=== PATIENT | female | born 1965 | race Caucasian/White ===

== ENCOUNTER 2024-12-23 10:27 | Observation (INO) | payer BC, SELFPAY ==
[2024-12-23] VITALS (15 sets, daily range): BP systolic 113–166; BP diastolic 63–82; PULSE 64–104; RESP 16–32; TEMP 36.3–36.4; O2SAT 93–97; BMI 16.9
--- NOTE | ~2024-12-23 | CT_ITS ---
EXAMINATION: CTA chest PE protocol DATE: 12/24/2024 16:54 CDT INDICATION: Pleuritic chest pain, pulmonary embolus suspected clinically TECHNIQUE: Computed tomographic angiography (CTA) of the chest was performed with 100 mL Omnipaque-35 0 intravenous contrast. The dose-length product was 167.36 mGy-cm. Maximum intensity projection 3D-re constructions of the aorta and other arteries were constructed by the technologist on a separate work station. COMPARISON: None. Two-view chest x-ray dated 12/23/2024 FINDINGS/OBSERVATIONS: PULMONARY ARTERIES: No filling defect is identified within the main or proximal pulmonary artery. The main pulmonary artery is not enlarged. THORACIC AORTA: No aneurysmal dilatation or dissection is present. The great vessels are intact LUNGS: Panlobular emphysematous disease. Calcified granuloma within the left lower lobe suggesting prior granulomatous disease. Redemonstration of bibasilar atelectasis, consistent with recent chest radiograph. MEDIASTINUM: No morphologically suspicious or pathologically enlarged lymph nodes are identified with in the mediastinum or bilateral axilla. BONES OF THE CHEST: No acute fracture. No significant degenerative disease. No lytic or blastic lesions. HEART: The heart is of normal size, without pericardial effusion. IMPRESSION: No pulmonary embolus. No thoracic aortic dissection. Bibasilar atelectasis, consistent with recent chest radiograph Reviewed, dictated and finalized at location A.
--- NOTE | ~2024-12-23 | XR_ITS ---
EXAMINATION: XR chest 2V 12/23/2024 12:23 INDICATION: Shortness of breath PROCEDURE: 2 view chest COMPARISON: No prior studies for comparison. FINDINGS: There is posterior basilar infiltrates which may represent atelectasis or pneumonia. Promin ent left nipple shadow. The cardiomediastinal silhouette is within normal limits. There are no pleur al effusions. There is no pneumothorax suspected. The lungs are hyperinflated which is consistent with, but not diagnostic of chronic obstructive pulmo nary disease. IMPRESSION: 1: Posterior basilar infiltrates, best seen on lateral view, atelectasis versus pneumonia. Reviewed, dictated and finalized at location A. IMPRESSION: 1: Posterior basilar infiltrates, best seen on lateral view, atelectasis versu s pneumonia.
--- OUTSIDE RECORDS SUMMARY | 2024-12-23 11:42 | XMS_ITS | Referral Summary ---
Author Organization [facility] [address] [place] [address] [place] [id number] Care Team Providers Care Afterschool Name Role Phone Marci Trinidad MD Primary Care Provi tootie Encounters Date Type Department Care Team Description 10/20/2024 10:32 AM SCHOOL MANAGER - 10/20/2024 11:57 AM SCHOOL MANAGER Emergency [address] [address] Homelessness (Primary Dx) Discharge Disposition: Discharge to home or self care from Last 3 Months Allergies No known active allergies Medications ibuprofen (ADVIL,MOTRIN) 800 mg tablet Take 1 tablet (800 mg total) by mouth every 8 (eight) hours as needed for pain 30 tablet 10/01/2020 Active Active Problems Problem Noted Date Diagnosed Date Hypertension, essential 09/07/2020 Assessment & Plan (09/07/2020 10:54 AM SCHOOL MANAGER): Will have her follow up as a nurse visit for 2 more blood pressure checks Will check labs If still running high- consider medication Call for questions or concerns Sciatica, right side 09/07/2020 Assessment & Plan (09/07/2020 10:55 AM SCHOOL MANAGER): Will refill ibuprofen Hold muscle relaxers as she has fallen on them Xray ordered Referral to PT Ice/ heat for 10-15 minutes at a time, not on bare skin Call if symptoms change or worsen Tobacco use 09/07/2020 Assessment & Plan (09/07/2020 10:56 AM SCHOOL MANAGER): Continue cutting down Social History Tobacco Use Types Packs/Day Years Used Date Smoking Tobacco: Every Day Cigarettes 0 10 Smokeless Tobacco: Never Tobacco Cessation:Ready to Q uit: No Alcohol Use Standard Drinks/Week Comments Not Currently 0 (1 standard drink = 0.6 oz pur e alcohol) PHQ-2 Answer Date Recorded PHQ-2 Total Score (If total score is 3 or more points, staff should administer the PHQ-9) 0 09/07/2020 Personal Safety Answer Date Recorded Have you ever been in or are you currently in a harmful physical or emotional relationship or is someone making you feel afraid or unsafe? Denies 10/20/2024 Comments No Sex and Gender Information Value Date Recorded Sex Assigned at Not on file Legal Sex Female 3:06 AM SCHOOL MANAGER Gender Identity Not on file Sexual Orientation Not on file Last Filed Vital Signs Vital Sign Reading Time Taken Comments Blood Pressure 143/87 10/20/2024 10:05 AM SCHOOL MANAGER Pulse 106 10/20/2024 10:05 AM SCHOOL MANAGER Temperature 37.2 C (98.9 F) 10/20/2024 10:05 AM SCHOOL MANAGER Respiratory Rate 14 10/20/2024 10:05 AM SCHOOL MANAGER Oxygen Saturation 99% 10/20/2024 10:05 AM SCHOOL MANAGER Inhaled Oxygen Concentration - - Weight 60 kg (132 lb 4.4 oz) 03/04/2022 2:53 PM CDT Height 164.5 cm (5' 4.76 ) 03/04/2022 4:53 PM CD T Body Mass Index 22.17 03/04/2022 2:53 PM CDT Plan of Treatment Not on file Insurance [facility] PLAN YENNY MILLER [id number] Care Teams Afterschool Relationship Specialty Start Date End Date Marci Trinidad MD [facility] [address] [place] [address] PCP - General Family Medicine 06/10/20
--- OUTSIDE RECORDS SUMMARY | 2024-12-23 11:42 | XMS_ITS | Clinical Summary ---
Author Organization [facility] [address] Address [address] [place] [phone] Care Team Providers Care Parole Hearing Officer Name Role Phone Marci Trinidad MD Primary Care Provi tootie Allergies No known active allergies Medications ibuprofen (ADVIL,MOTRIN) 800 mg tablet Take 1 tablet (800 mg total) by mouth every 8 (eight) hours as needed for pain 30 tablet 10/01/2020 Active Active Problems Problem Noted Date Diagnosed Date Hypertension, essential 09/07/2020 Assessment & Plan (09/07/2020 10:54 AM SENIOR WATER/WASTEWATER ENGINEER): Will have her follow up as a nurse visit for 2 more blood pressure checks Will check labs If still running high- consider medication Call for questions or concerns Sciatica, right side 09/07/2020 Assessment & Plan (09/07/2020 10:55 AM SENIOR WATER/WASTEWATER ENGINEER): Will refill ibuprofen Hold muscle relaxers as she has fallen on them Xray ordered Referral to PT Ice/ heat for 10-15 minutes at a time, not on bare skin Call if symptoms change or worsen Tobacco use 09/07/2020 Assessment & Plan (09/07/2020 10:56 AM SENIOR WATER/WASTEWATER ENGINEER): Continue cutting down Encounters Date Type Department Care Team Description 10/20/2024 10:32 AM SENIOR WATER/WASTEWATER ENGINEER - 10/20/2024 11:57 AM SENIOR WATER/WASTEWATER ENGINEER Emergency [address] [address] Homelessness (Primary Dx) Discharge Disposition: Discharge to home or self care from Last 3 Months Surgical History Surgery Date Site/Laterality Comments OVARIAN CYST SURGERY HYSTEROSCOPY W/ ENDOMETRIAL ABLATION REVISION OF SCAR TISSUE RECTUS MUSCLE Medical History Medical History Date Comments Arthritis Hypertension, essential 09/07/2020 Tobacco use 09/07/2020 Family History Medical History Relation Name Comments Arthritis Mother Relation Name Status Comments Mother Alive Social History Tobacco Use Types Packs/Day Years [...] on file Legal Sex Female 3:06 AM SENIOR WATER/WASTEWATER ENGINEER Gender Identity Not on file Sexual Orientation Not on file Obstetrics History Last Filed Vital Signs Vital Sign Reading Time Taken Comments Blood Pressure 143/87 10/20/2024 10:05 AM SENIOR WATER/WASTEWATER ENGINEER Pulse 106 10/20/2024 10:05 AM SENIOR WATER/WASTEWATER ENGINEER Temperature 37.2 C (98.9 F) 10/20/2024 10:05 AM SENIOR WATER/WASTEWATER ENGINEER Respiratory Rate 14 10/20/2024 10:05 AM SENIOR WATER/WASTEWATER ENGINEER Oxygen Saturation 99% 10/20/2024 10:05 AM SENIOR WATER/WASTEWATER ENGINEER Inhaled Oxygen Concentration - - Weight 60 kg (132 lb 4.4 oz) 03/04/2022 2:53 PM CDT Height 164.5 cm (5' 4.76 ) 03/04/2022 4:53 PM CD T Body Mass Index 22.17 03/04/2022 2:53 PM CDT Plan of Treatment Health Maintenance Due Date Last Done Comments Breast Cancer Screening-Mammogram 1965 Cervical Cancer Screening 1965 Colon Cancer Screening-Colonoscopy 1965 Hepatitis C Screening 1965 DTaP/Tdap/Td Vaccine (1 - Tdap) 1976 Hepatitis B Screening 1983 Pneumococcal vaccine <65 (1 of 2 - PCV) 1984 Zoster Vaccine (1 of 2) 2015 Depression Screening 09/07/2021 09/07/2020 Regular Well Visit/Exam 18-64 09/07/2021 09/07/2020 Covid-19 Vaccine ( season) 05/26/202410/2020, 12/04/2020 Influenza Vaccine (#1) 2024 Insurance [facility] PLAN Care Teams Parole Hearing Officer Relationship Specialty Start Date End Date Marci Trinidad MD [address] [place] [address] PCP - General Family Medicine 06/10/20
--- OUTSIDE RECORDS SUMMARY | 2024-12-23 11:42 | XMS_ITS | Clinical Summary ---
Author Organization [facility] Address [facility] [place] [address] Care Team Providers Care Ecologist Technician Name Role Phone None, Provider MD Primary Care Provider Unavaila ble Allergies No known active allergies Medications No known medications Active Problems No known active problems Encounters Date Type Department Care Team Description 10/20/2024 7:42 PM SEPHORA PRODUCT CONSULTANT - 10/20/2024 9:37 PM SEPHORA PRODUCT CONSULTANT Emergency [facility] [place] [address] Abiola Jose PA Medical Screening Discharge Disposition: Home or Self Care (Routine Discharge) 10/20/2024 Travel from Last 3 Months Family History Medical History Relation Comments Heart Disease Father Liver Disease Mother Relation Status Comments Father Alive Mother Alive Social History Tobacco Use Types Packs/Day Years Used Date Smoking Tobacco: Every Day Cigarettes Smokeless Tobacco: Never Alcohol Use Standard Drinks/Week Comments Not Currently 0 (1 standard drink = 0.6 oz pur e alcohol) Comments No Sex and Gender Information Value Date Recorded Sex Assigned at Female 10/20/2024 7:40 PM SEPHORA PRODUCT CONSULTANT Legal Sex Female 7:15 PM CDT Gender Identity Not on file Sexual Orientation Not on file Last Filed Vital Signs Vital Sign Reading Time Taken Comments Blood Pressure 136/93 10/20/2024 7:06 PM SEPHORA PRODUCT CONSULTANT Pulse 99 10/20/2024 7:06 PM SEPHORA PRODUCT CONSULTANT Temperature 36.9 C (98.4 F) 10/20/2024 7:06 PM SEPHORA PRODUCT CONSULTANT Respiratory Rate 16 10/20/2024 7:06 PM SEPHORA PRODUCT CONSULTANT Oxygen Saturation 100% 10/20/2024 7:06 PM SEPHORA PRODUCT CONSULTANT Inhaled Oxygen Concentration - - Weight 42.9 kg (94 lb 9.2 oz) 10/20/2024 7:06 PM SEPHORA PRODUCT CONSULTANT Height 167.6 cm (5' 6 ) 10/20/2024 7:06 PM SEPHORA PRODUCT CONSULTANT Body Mass Index 15.27 10/20/2024 7:06 PM SEPHORA PRODUCT CONSULTANT Plan of Treatment Health Maintenance Due Date Last Done Comments Colorectal Cancer Screening Colonoscopy (10 Years) 1965 Annual Physical 1968 Pneumococcal Vaccine: Pediatrics (0 to 5 Years) and At-Risk Patients (6 to 64 Years) (1 of 2 - PCV) 1971 Hepatitis C 1983 DTaP, Tdap and Td Vaccines ( 1 - Tdap) 1984 Mammogram Screening 2005 Zoster Vaccines (1 of 2) 2015 COVID-19 Vaccine (3 - 2023-2 5 season) 2024 12/25/2020, 12/04/2020 Influenza Adult (#1) 2024 Meningococcal B Vaccine Aged Out No l onger eligible based on patient's age to complete this topic Meningococcal Vaccine Aged Out No chris justyn eligible based on patient's age to complete this topic RSV Immunizations Under 20 Months Aged Out No longer eligible b ased on patient's age to complete this topic Insurance Care Teams Ecologist Technician Relationship Specialty Start Date End Date None, Provider, PCP - General 04/08/22
--- NOTE | 2024-12-23 12:02 | ED_ITS ---
HPI - SOB/Dyspnea General Chief Complaint: Shortness of Breath/Dyspnea <Rosario Saeed APRN - Last Filed: 12/23/24 12:05> Stated Complaint: sob <Rosario Saeed APRN - Last Filed: 12/23/24 12:05> Time Seen by Provider: 12/23/24 12:00 <Rosario Saeed APRN - Last Filed: 12/23/24 12:05> Focused HPI: Patient is a 59-year-old female who presents to the ER with shortness of breath for the past week. She reports she has a history of COPD. Throughout the past week she has had increased congestion, increased shortness of breath, and increased wheezing. Patient reports she lives at a [facility] 3 days per week. She denies any chest pain, recent fevers, abdominal pain or back pain. GENERAL: Ill-appearing, well-nourished, and in mild respiratory distress. HEAD: Normocephalic, atraumatic. CHEST: Coarse to auscultation. ?Mild respiratory distress. HEART: Regular rate and rhythm.? NEURO: ?Alert and oriented x3. Patient screened in triage and initial orders placed.? ?Additional care and disposition to be based upon?diagnostic testing and treatment. <Rosario Saeed APRN - Last Filed: 12/23/24 12:05> History of Present Illness HPI Narrative: Agree with HPI. <Erlin Mendoza MD - Last Filed: 12/24/24 12:57> Related Data Home Medications: Home Medications ?Medication ?Instructions ?Recorded ?Confirmed ?Last Taken ?Type albuterol sulfate 90 mcg/actuation 2 puff inhalation PRN PRN 12/23/24 12/23/24 12/23/24 History aerosol inhaler shortness of breath or wheezing alprazolam 0.25 mg tablet 0.25 mg PO .q12hr 12/23/24 12/23/24 12/23/24 History amlodipine 5 mg tablet 5 mg PO DAILY 12/23/24 12/23/24 12/23/24 History budesonide-formoterol HFA 160 2 puff inhalation BID 12/23/24 12/23/24 12/23/24 History mcg-4.5 mcg/actuation aerosol inhaler (Symbicort) fluticasone 250 mcg-salmeterol 50 1 inh inhalation BID 12/23/24 12/23/24 12/23/24 History mcg/dose blistr powdr for inhalation gabapentin 100 mg capsule 100 mg PO Q12H 12/23/24 12/23/24 12/23/24 History nicotine 14 mg/24 hr daily 1 patch transdermal DAILY 12/23/24 12/23/24 12/23/24 History transdermal patch risperidone 1 mg tablet 1 mg PO HS 12/23/24 12/23/24 12/22/24 History <Rosario Saeed APRN - Last Filed: 12/23/24 12:05> Allergies/Adverse Reactions: Allergies Allergy/AdvReac Type Severity Reaction Status Date / Time NSAIDS (Non-Steroidal Allergy Mild Unknown Verified 12/23/24 12:45 Anti-Inflamma <Rosario Saeed APRN - Last Filed: 12/23/24 12:05> Review of Systems 2 Review of Systems: All systems reviewed & are unremarkable except as noted in HPI and below <Erlin Mendoza MD - Last Filed: 12/24/24 12:57> Constitutional: Constitutional: Reports no additional constitutional complaints <Erlin Mendoza MD - Last Filed: 12/24/24 12:57> Cardiovascular: Cardiovascular: Reports no additional cardiovascular complaints <Erlin Mendoza MD - Last Filed: 12/24/24 12:57> Respiratory: Respiratory: Reports no additional respiratory complaints < Erlin Mendoza MD - Last Filed: 12/24/24 12:57> Gastrointestinal: Gastrointestinal: Reports no additional gastrointestinal complaints <Erlin Mendoza MD - Last Filed: 12/24/24 12:57> Integumentary/Breasts: Skin/Breast: Reports system reviewed and no additional complaints, except as docu <Erlin Mendoza MD - Last Filed: 12/24/24 12:57> [facility] Past Medical History Medical History: Medical History (Updated 12/24/24 @ 12:57 by Erlin Mendoza MD) Hypertension Anxiety Neuropathy Osteoarthritis Tobacco dependence Chronic obstructive pulmonary disease <Rosario Saeed APRN - Last Filed: 12/23/24 12:05> Surgical History Surgical History: Surgical History (Updated 12/23/24 @ 20:15 by Denia Mg PA-C) History of oophorectomy History of laparoscopy for endometriosis <Rosario aSeed APRN - Last Filed: 12/23/24 12:05> Family History Family History: Family History Mother COPD (chronic obstructive pulmonary disease) Neuropathy Cirrhosis Alcoholism Father Cirrhosis Alcoholism <Rosario Saeed APRN - Last Filed: 12/23/24 12:05> Social History Social History: Social History (Updated 12/23/24 @ 20:16 by Denia Mg PA-C) Social History: Surrogate medical decision maker: [employer], ex-. Code status: Full code. Years smoked: 31 Smoking status: Current every day smoker Tobacco type: cigarettes Additional smoking assessment comments: Smoked as much as 1/2 PPD, now down to about a pack a week. Alcohol intake: never Substance use: former Substance use type: heroin Last use: 16 years ago Do You Feel Safe in your Home?: Yes Lack of Transportation: No Lack of Food: Never True Current Housing: I Have Housing Concerned About Future Housing: No Difficulty Paying Gas/Electric Bills: No Difficulty Paying for Meds: No Currently Unemployed: No Education: High School Diploma/GED Difficulty w/ Childcare or Family Care: No Additional living arrangements comments: [facility]. She only stays are 3 days a week and stays with her ex on the other days. Spiritual care concerns: No <Rosario Saeed APRN - Last Filed: 12/23/24 12:05> Exam 2 Narrative: GENERAL: Chronically [id number], well-nourished, and in no acute distress. HEAD: Normocephalic, atraumatic. ENT: Mucous membranes moist. CHEST: Diminished bilaterally awake using. Mild respiratory distress. HEART: Regular rate and rhythm. Normal peripheral pulses. ABDOMEN: Soft, nontender, nondistended. EXTREMITIES: Normal range of motion. No edema. SKIN: Warm, dry, no rash. NEURO: Alert and oriented x3. PSYCH: Normal mood and affect. <Erlin Mendoza MD - Last Filed: 12/24/24 12:57> Course Course Emergency Course: Patient tolerated hour long nebulizer treatment. When ambulating has oxygen desaturation into the upper 80s. Would benefit from observation and scheduled steroid/breathing treatments. <Erlin Mendoza MD - Last Filed: 12/24/24 12:57> Vital Signs Vital signs: Vital Signs Temperature 97.5 F L 12/23/24 10:45 Pulse Rate 94 12/23/24 10:45 Respiratory Rate 16 12/23/24 10:45 Blood Pressure 116/63 12/23/24 10:45 Pulse Oximetry 93 12/23/24 10:45 Temperature 98 F 12/24/24 06:00 Pulse Rate 95 12/24/24 06:00 Respiratory Rate 16 12/24/24 06:00 Blood Pressure 117/60 12/24/24 06:00 Pulse Oximetry 93 12/24/24 06:00 Oxygen Delivery Room Air 12/23/24 20:00 <Rosario Saeed FUNDING COORDINATOR - Last Filed: 12/23/24 12:05> Vital Signs Temperature 97.5 F L 12/23/24 10:45 Pulse Rate 94 12/23/24 10:45 Respiratory Rate 16 12/23/24 10:45 Blood Pressure 116/63 12/23/24 10:45 Pulse Oximetry 93 12/23/24 10:45 Temperature 98 F 12/24/24 06:00 Pulse Rate 95 12/24/24 06:00 Respiratory Rate 16 12/24/24 06:00 Blood Pressure 117/60 12/24/24 06:00 Pulse Oximetry 93 12/24/24 06:00 Oxygen Delivery Room Air 12/23/24 20:00 <Erlin Mendoza MD - Last Filed: 12/24/24 12:57> MDM - SOB/Dyspnea Lab Data Result diagrams: 12/23/24 12:14 12/23/24 12:14 <Rosario Saeed APRN - Last Filed: 12/23/24 12:05> Labs: Lab Results 12/23/24 Range/Units 12:14 WBC 8.0 (4.5-10.0) K/mm3 RBC 4.12 L (4.2-5.4) M/mm3 Hgb 13.8 (12.0-15.0) g/dL Hct 41.4 (37.0-47.0) % MCV 100.5 H (80-100) fl MCH 33.5 (26-34) pg MCHC 33.3 (32-36) g/dl RDW 12.8 (11.5-14.5) % Plt Count 295 (150-375) k/mm3 MPV 8.8 (7.4-10.4) fl Immature Gran % (Auto) 0.4 (0-0.5) % Neut % (Auto) 47.4 (45.5-73.1) % Lymph % (Auto) 45.9 H (18.3-44.2) % [place] % (Auto) 5.0 (2.6-8.5) % Eos % (Auto) 0.9 (0-4.4) % Baso % (Auto) 0.4 (0.2-1.2) % Lymph # (Auto) 3.68 H (0.9-3.2) K/mm3 [place] # (Auto) 0.4 (0.1-0.6) K/mm3 Eos # (Auto) 0.1 (0-0.3) K/mm3 Baso # (Auto) 0.0 (0.0-0.1) K/mm3 Abs Immat Gran (auto) 0.03 (0.00-0.031) K/mm3 Absolute Neuts (auto) 3.8 (1.3-6.7) K/mm3 Absolute Nucleated RBC 0.000 (0.0-0.012) K/mm3 Nucleated RBC % 0.0 (0.0-0.2) % PT 12.7 (11.1-14.7) Seconds INR 0.9 APTT 23.9 (22.3-36.8) Seconds Sodium 143 (137-145) mmol/L Potassium 3.4 (3.4-5.0) mmol/L Chloride 105 (98-107) mmol/L Carbon Dioxide 24 (22-30) mmol/L Anion Gap 14 H (4-12) mmol/L BUN 9 (7-17) mg/dL Creatinine 0.68 L (0.7-1.0) mg/dL Estim Creat Clear Calc 60 ml/min Estimated GFR > 60 (59 - ) Glucose 128 H (65-110) mg/dL Calcium 9.5 (8.4-10.2) mg/dL Total Bilirubin 0.2 (0.2-1.3) mg/dL AST 27 (14-36) U/L ALT 21 (6-35) U/L Alkaline Phosphatase 80 (38-126) U/L Troponin I < 0.012 (0.000-0.034) ng/mL Total Protein 8.0 (6.3-8.2) g/dL Albumin 4.9 (3.5-5.1) g/dL <Rosario Saeed, FUNDING COORDINATOR - Last Filed: 12/23/24 12:05> Lab Results 12/23/24 Range/Units 12:14 WBC 8.0 (4.5-10.0) K/mm3 RBC 4.12 L (4.2-5.4) M/mm3 Hgb 13.8 (12.0-15.0) g/dL Hct 41.4 (37.0-47.0) % MCV 100.5 H (80-100) fl MCH 33.5 (26-34) pg MCHC 33.3 (32-36) g/dl RDW 12.8 (11.5-14.5) % Plt Count 295 (150-375) k/mm3 MPV 8.8 (7.4-10.4) fl Immature Gran % (Auto) 0.4 (0-0.5) % Neut % (Auto) 47.4 (45.5-73.1) % Lymph % (Auto) 45.9 H (18.3-44.2) % [place] % (Auto) 5.0 (2.6-8.5) % Eos % (Auto) 0.9 (0-4.4) % Baso % (Auto) 0.4 (0.2-1.2) % Lymph # (Auto) 3.68 H (0.9-3.2) K/mm3 [place] # (Auto) 0.4 (0.1-0.6) K/mm3 Eos # (Auto) 0.1 (0-0.3) K/mm3 Baso # (Auto) 0.0 (0.0-0.1) K/mm3 Abs Immat Gran (auto) 0.03 (0.00-0.031) K/mm3 Absolute Neuts (auto) 3.8 (1.3-6.7) K/mm3 Absolute Nucleated RBC 0.000 (0.0-0.012) K/mm3 Nucleated RBC % 0.0 (0.0-0.2) % PT 12.7 (11.1-14.7) Seconds INR 0.9 APTT 23.9 (22.3-36.8) Seconds Sodium 143 (137-145) mmol/L Potassium 3.4 (3.4-5.0) mmol/L Chloride 105 (98-107) mmol/L Carbon Dioxide 24 (22-30) mmol/L Anion Gap 14 H (4-12) mmol/L BUN 9 (7-17) mg/dL Creatinine 0.68 L (0.7-1.0) mg/dL Estim Creat Clear Calc 60 ml/min Estimated GFR > 60 (59 - ) Glucose 128 H (65-110) mg/dL Calcium 9.5 (8.4-10.2) mg/dL Total Bilirubin 0.2 (0.2-1.3) mg/dL AST 27 (14-36) U/L ALT 21 (6-35) U/L Alkaline Phosphatase 80 (38-126) U/L Troponin I < 0.012 (0.000-0.034) ng/mL Total Protein 8.0 (6.3-8.2) g/dL Albumin 4.9 (3.5-5.1) g/dL <Erlin Mendoza MD - Last Filed: 12/24/24 12:57> Discharge Plan Discharge Clinical Impression: Acute exacerbation of chronic obstructive pulmonary disease <Rosario Saeed APRN - Last Filed: 12/23/24 12:05> Patient Disposition: Still a Patient <Rosario Saeed APRN - Last Filed: 12/23/24 12:05> Condition: Stable <Rosario Saeed APRN - Last Filed: 12/23/24 12:05>
--- NOTE | 2024-12-23 12:02 | ECG_ITS ---
Test Date: 2024-12-23 12:13:18 Measurements Intervals [place] Rate: 97 P: 78 GA: 152 QRS: 103 QRSD: 97 T: 62 QT: 347 QTc: 442 Interpretive Statements SINUS RHYTHM RIGHT AXIS DEVIATION PROBABLE INFERIOR MYOCARDIAL INFARCTION , PROBABLY OLD [35 ms Q WAVE IN II/aVF] ABNORMAL ECG Electronically Signed On 12-23-2024 14:06:00 CDT by Marco Gtz M.D.
[2024-12-23 12:23] LABS: Basophils Percent Auto 0.4 % (0.2-1.2); Eosinophils Absolute Auto 0.1 K/mm3 (0-0.3); Eosinophils Percent Auto 0.9 % (0-4.4); Hematocrit 41.4 % (37.0-47.0); Hemoglobin 13.8 g/dL (12.0-15.0); Immature Granulocyte Absolute 0.03 K/mm3 (0.00-0.031); Immature Granulocyte Percent A 0.4 % (0-0.5); Lymphocytes Absolute Auto 3.68 K/mm3 (0.9-3.2); Lymphocytes Percent Auto 45.9 % (18.3-44.2); Mean Corpuscular HGB Conc 33.3 g/dl (32-36); Mean Corpuscular Hemoglobin 33.5 pg (26-34); Mean Corpuscular Volume 100.5 fl (80-100); Mean Platelet Volume 8.8 fl (7.4-10.4); Monocytes Absolute Auto 0.4 K/mm3 (0.1-0.6); Neutrophils Absolute Auto 3.8 K/mm3 (1.3-6.7); Neutrophils Percent Auto 47.4 % (45.5-73.1); Platelet Count Result 295 k/mm3 (150-375); Red Blood Count 4.12 M/mm3 (4.2-5.4); Red Cell Distribution Width 12.8 % (11.5-14.5)
[2024-12-23 12:31] LABS: Alanine Aminotransferase 21 U/L (6-35); Albumin Level 4.9 g/dL (3.5-5.1); Alkaline Phosphatase 80 U/L (38-126); Anion Gap 14 mmol/L (4-12); Aspartate Amino Transferase 27 U/L (14-36); Bilirubin,Total 0.2 mg/dL (0.2-1.3); Blood Urea Nitrogen 9 mg/dL (7-17); Calcium 9.5 mg/dL (8.4-10.2); Carbon Dioxide 24 mmol/L (22-30); Chloride 105 mmol/L (98-107); Estimated CRCL calculation 60 ml/min; Estimated Glomerular Filt Rate > 60; Glucose 128 mg/dL (65-110); Potassium 3.4 mmol/L (3.4-5.0); Sodium 143 mmol/L (137-145)
[2024-12-23 12:34] LABS: INR 0.9; Partial Thromboplastin Time 23.9 Seconds (22.3-36.8); Prothrombin Time 12.7 Seconds (11.1-14.7)
[2024-12-23 12:42] LABS: Troponin I < 0.012 ng/mL (0.000-0.034)
[2024-12-23] MEDS: methylPREDNISolone SOD SUCC 125 MG VIAL IV PUSH (13:48)
[2024-12-23] MEDS: IPRATROPIUM BR 0.02% INH SOLN 0.5 MG/2.5 ML VIAL 1.5 MG INHALATION (14:02)
[2024-12-23] MEDS: ALBUTEROL SULFATE NEB 2.5 MG/3 ML INH 15 MG INHALATION (14:02)
--- OUTSIDE RECORDS SUMMARY | 2024-12-23 15:16 | XMS_ITS | Clinical Summary ---
Author Organization [facility] Address [facility] [place] [address] Care Team Providers Care Cotton Breeder Name Role Phone None, Provider MD Primary Care Provider Unavaila ble Allergies No known active allergies Medications No known medications Active Problems No known active problems Encounters Date Type Department Care Team Description 10/20/2024 7:42 PM HOOP PUNCHER - 10/20/2024 9:37 PM HOOP PUNCHER Emergency [facility] [place] [address] Abiola Jose PA Medical Screening Discharge Disposition: [...] Sex Assigned at Female 10/20/2024 7:40 PM HOOP PUNCHER Legal Sex Female 7:15 PM CDT Gender Identity Not on file Sexual Orientation Not on file Last Filed Vital Signs Vital Sign Reading Time Taken Comments Blood Pressure 136/93 10/20/2024 7:06 PM HOOP PUNCHER Pulse 99 10/20/2024 7:06 PM HOOP PUNCHER Temperature 36.9 C (98.4 F) 10/20/2024 7:06 PM HOOP PUNCHER Respiratory Rate 16 10/20/2024 7:06 PM HOOP PUNCHER Oxygen Saturation 100% 10/20/2024 7:06 PM HOOP PUNCHER Inhaled Oxygen Concentration - - Weight 42.9 kg (94 lb 9.2 oz) 10/20/2024 7:06 PM HOOP PUNCHER Height 167.6 cm (5' 6 ) 10/20/2024 7:06 PM HOOP PUNCHER Body Mass Index 15.27 10/20/2024 7:06 PM HOOP PUNCHER Plan of Treatment Health Maintenance Due Date [...] to complete this topic Insurance Care Teams Cotton Breeder Relationship Specialty Start Date End Date None, Provider, PCP - General 04/08/22
--- OUTSIDE RECORDS SUMMARY | 2024-12-23 15:16 | XMS_ITS | Referral Summary ---
Author Organization [facility] [address] [place] [address] [place] [id number] Care Team Providers Care Neuropsychiatrist Name Role Phone Marci Trinidad MD Primary Care Provi tootie Encounters Date Type Department Care Team Description 10/20/2024 10:32 AM PROGRESSIVE DIE MAKER - 10/20/2024 11:57 AM PROGRESSIVE DIE MAKER Emergency [address] [address] Homelessness (Primary Dx) Discharge Disposition: Discharge to home or self care from Last 3 Months Allergies No known active allergies Medications ibuprofen (ADVIL,MOTRIN) 800 mg tablet Take 1 tablet (800 mg total) by mouth every 8 (eight) hours as needed for pain 30 tablet 10/01/2020 Active Active Problems Problem Noted Date Diagnosed Date Hypertension, essential 09/07/2020 Assessment & Plan (09/07/2020 10:54 AM PROGRESSIVE DIE MAKER): Will have her follow up as a nurse visit for 2 more blood pressure checks Will check labs If still running high- consider medication Call for questions or concerns Sciatica, right side 09/07/2020 Assessment & Plan (09/07/2020 10:55 AM PROGRESSIVE DIE MAKER): Will refill ibuprofen Hold muscle relaxers as she has fallen on them Xray ordered Referral to PT Ice/ heat for 10-15 minutes at a time, not on bare skin Call if symptoms change or worsen Tobacco use 09/07/2020 Assessment & Plan (09/07/2020 10:56 AM PROGRESSIVE DIE MAKER): Continue cutting down Social History Tobacco Use [...] on file Legal Sex Female 3:06 AM PROGRESSIVE DIE MAKER Gender Identity Not on file Sexual Orientation Not on file Last Filed Vital Signs Vital Sign Reading Time Taken Comments Blood Pressure 143/87 10/20/2024 10:05 AM PROGRESSIVE DIE MAKER Pulse 106 10/20/2024 10:05 AM PROGRESSIVE DIE MAKER Temperature 37.2 C (98.9 F) 10/20/2024 10:05 AM PROGRESSIVE DIE MAKER Respiratory Rate 14 10/20/2024 10:05 AM PROGRESSIVE DIE MAKER Oxygen Saturation 99% 10/20/2024 10:05 AM PROGRESSIVE DIE MAKER Inhaled Oxygen Concentration - - Weight 60 kg (132 lb 4.4 oz) 03/04/2022 2:53 PM CDT Height 164.5 cm (5' 4.76 ) 03/04/2022 4:53 PM CD T Body Mass Index 22.17 03/04/2022 2:53 PM CDT Plan of Treatment Not on file Insurance [facility] PLAN YENNY MILLER [id number] Care Teams Neuropsychiatrist Relationship Specialty Start Date End Date Marci Trinidad MD [facility] [address] [place] [address] PCP - General Family Medicine 06/10/20
--- OUTSIDE RECORDS SUMMARY | 2024-12-23 15:16 | XMS_ITS | Clinical Summary ---
Author Organization [facility] Address [address] [place] [id number] Care Team Providers Care Boxcar Weigher Name Role Phone Marci Trinidad MD Primary Care Provi tootie Allergies No known active allergies Medications ibuprofen (ADVIL,MOTRIN) 800 mg tablet Take 1 tablet (800 mg total) by mouth every 8 (eight) hours as needed for pain 30 tablet 10/01/2020 Active Active Problems Problem Noted Date Diagnosed Date Hypertension, essential 09/07/2020 Assessment & Plan (09/07/2020 10:54 AM BATTERY REPAIRER): Will have her follow up as a nurse visit for 2 more blood pressure checks Will check labs If still running high- consider medication Call for questions or concerns Sciatica, right side 09/07/2020 Assessment & Plan (09/07/2020 10:55 AM BATTERY REPAIRER): Will refill ibuprofen Hold muscle relaxers as she has fallen on them Xray ordered Referral to PT Ice/ heat for 10-15 minutes at a time, not on bare skin Call if symptoms change or worsen Tobacco use 09/07/2020 Assessment & Plan (09/07/2020 10:56 AM BATTERY REPAIRER): Continue cutting down Encounters Date Type Department Care Team Description 10/20/2024 10:32 AM BATTERY REPAIRER - 10/20/2024 11:57 AM BATTERY REPAIRER Emergency [address] [id number] Homelessness (Primary Dx) Discharge Disposition: Discharge to [...] on file Legal Sex Female 3:06 AM BATTERY REPAIRER Gender Identity Not on file Sexual Orientation Not on file Obstetrics History Last Filed Vital Signs Vital Sign Reading Time Taken Comments Blood Pressure 143/87 10/20/2024 10:05 AM BATTERY REPAIRER Pulse 106 10/20/2024 10:05 AM BATTERY REPAIRER Temperature 37.2 C (98.9 F) 10/20/2024 10:05 AM BATTERY REPAIRER Respiratory Rate 14 10/20/2024 10:05 AM BATTERY REPAIRER Oxygen Saturation 99% 10/20/2024 10:05 AM BATTERY REPAIRER Inhaled Oxygen Concentration - - Weight 60 [...] 05/26/202410/2020, 12/04/2020 Influenza Vaccine (#1) 2024 Insurance [facility] Care Teams Boxcar Weigher Relationship Specialty Start Date End Date Marci Trinidad MD [address] [place] [address] PCP - General Family Medicine 06/10/20
--- NOTE | 2024-12-23 17:30 | P.HP_ITS ---
H&P: HPI History of Present Illness Date/Time: 12/23/24 17:30 Chief Complaint: Cough and shortness of breath. Narrative: This is a pleasant 59-year-old female smoker with chronic obstructive pulmonary disease, hypertension, neuropathy, and anxiety who presented to the emergency department via EMS from home for evaluation of cough and shortness of breath. At baseline she does not get around very well and is limited by her breathing. When she is out of the home (she lives at [place] 3 days a week but then stays with her ex- the remainder of the week) she will use as scooter. She can only go up a few steps without getting short of breath. She does have a chronic cough which is typically not productive. Over the course of the last week or so she has developed increasing cough which has been productive clear sputum, progressive dyspnea on lesser and lesser exertion, and feelings as though she is unable to get in a good deep breath. She has been using her inhalers at home which have not provided her with much benefit. She does not have nebulizers prescribed to her. She denies fever, headache, sore throat, hemoptysis, pleuritic pain, vomiting, diarrhea, lower extremity edema, and calf pain. In the ED: SpO2 was 93% on room air on arrival and her vital signs have been stable. CMP and CBC were pretty unremarkable. Chest x-ray showed posterior basal infiltrates atelectasis versus pneumonia. She was given a continuous nebulizer treatment and methylprednisolone and she is being admitted in this setting for further treatment of COPD exacerbation. Review of Systems Review of Systems: 12 systems were reviewed and are negativ e except for as per HPI. [facility] Past Medical History Medical History (Updated 12/23/24 @ 20:19 by Denia Mg PA-C) Hypertension Anxiety Neuropathy Osteoarthritis Tobacco dependence Chronic obstructive pulmonary disease Surgical History Surgical History (Updated 12/23/24 @ 20:15 by Denia Mg PA-C) History of oophorectomy History of laparoscopy for endometriosis Family History Family History Mother COPD (chronic obstructive pulmonary disease) Neuropathy Cirrhosis Alcoholism Father Cirrhosis Alcoholism Social History Social History (Updated 12/23/24 @ 20:16 by Denia Mg PA-C) Social History: Surrogate medical decision maker: Avery Madura, ex-. Code status: Full code. Years smoked: 31 Smoking status: Current every day smoker Tobacco type: cigarettes Additional smoking assessment comments: Smoked as much as 1/2 PPD, now down to about a pack a week. Alcohol intake: never Substance use: former Substance use type: heroin Last use: 16 years ago Do You Feel Safe in your Home?: Yes Lack of Transportation: No Lack of Food: Never True Current Housing: I Have Housing Concerned About Future Housing: No Difficulty Paying Gas/Electric Bills: No Difficulty Paying for Meds: No Currently Unemployed: No Education: High School Diploma/GED Difficulty w/ Childcare or Family Care: No Additional living arrangements comments: [facility]. She only stays are 3 days a week and stays with her ex on the other days. Spiritual care concerns: No Meds Home Medications and Allergies Home Medications ?Medication ?Instructions ?Recorded ?Confirmed ?Type albuterol sulfate 90 mcg/actuation 2 puff inhalation PRN PRN 12/23/24 12/23/24 History aerosol inhaler shortness of breath or wheezing alprazolam 0.25 mg tablet 0.25 mg PO BID 12/23/24 12/23/24 History amlodipine 5 mg tablet 5 mg PO DAILY 12/23/24 12/23/24 History budesonide-formoterol HFA 160 2 puff inhalation BID 12/23/24 12/23/24 History mcg-4.5 mcg/actuation aerosol inhaler (Symbicort) fluticasone 250 mcg-salmeterol 50 1 inh inhalation BID 12/23/24 12/23/24 History mcg/dose blistr powdr for inhalation gabapentin 100 mg capsule 100 mg PO BID 12/23/24 12/23/24 History nicotine 14 mg/24 hr daily 1 patch transdermal DAILY 12/23/24 12/23/24 History transdermal patch risperidone 1 mg tablet 1 mg PO HS 12/23/24 12/23/24 History Allergies Allergy/AdvReac Type Severity Reaction Status Date / Time NSAIDS (Non-Steroidal Allergy Mild Unknown Verified 12/23/24 12:45 Anti-Inflamma Vital Signs Vital Signs - 24 hr 12/23/24 10:45 12/23/24 12:43 12/23/24 12:43 Temperature 97.5 F L Pulse Rate 94 92 Respiratory Rate 16 Blood Pressure 116/63 Pulse Oximetry 93 97 Oxygen Delivery Room Air 12/23/24 13:16 12/23/24 13:32 12/23/24 14:00 Temperature Pulse Rate 94 97 90 Respiratory Rate 26 H 32 H 20 Blood Pressure 116/73 166/81 H Pulse Oximetry 97 95 Oxygen Delivery 12/23/24 15:25 12/23/24 16:51 Temperature Pulse Rate 104 H 97 Respiratory Rate 20 20 Blood Pressure 113/70 Pulse Oximetry 93 Oxygen Delivery Exam Narrative: General: Well-developed, thin female sitting up in bed in no acute distress. Weight: 50 kg. BMI: 19.5. HEENT: PERRL, EOMI. Sclera anicteric. Oral mucosa moist. Neck: Supple. Respiratory: Respirations are nonlabored and she appears in no distress. She is speaking in full sentences. Diminished air entry throughout with diffuse expiratory wheezing and prolonged expiratory phase. Cardiovascular: Regular rate and rhythm with S1-S2. Gastrointestinal: Abdomen is soft, nontender, and nondistended with positive bowel sounds. Skin: Warm and dry. No rash or lesions on limited exam. Extremities: No cyanosis, clubbing, or edema. Radial and pedal pulses intact. Neurological: Alert. Cranial nerves 2-12 are grossly intact. No gross focal deficits to casual conversation. Psychiatric: Pleasant and cooperative with normal mood and affect. Judgment and insight intact. H&P: Results Labs Labs: Short CBC 12/23/24 Range/Units 12:14 WBC 8.0 (4.5-10.0) K/mm3 Hgb 13.8 (12.0-15.0) g/dL Hct 41.4 (37.0-47.0) % Plt Count 295 (150-375) k/mm3 [facility] 12/23/24 12:14 Sodium 143 Potassium 3.4 Chloride 105 Carbon Dioxide 24 BUN 9 Creatinine 0.68 L Glucose 128 H Calcium 9.5 Cardiac Enzymes 12/23/24 Range/Units 12:14 Troponin I < 0.012 (0.000-0.034) ng/mL Liver Function 12/23/24 Range/Units 12:14 Total Bilirubin 0.2 (0.2-1.3) mg/dL AST 27 (14-36) U/L ALT 21 (6-35) U/L Alkaline Phosphatase 80 (38-126) U/L Albumin 4.9 (3.5-5.1) g/dL Impressions Chest X-Ray 12/23/24 12:30 IMPRESSION: 1: Posterior basilar infiltrates, best seen on lateral view, atelectasis versus pneumonia. Assessment and Plan Assessment and plan (1) Acute exacerbation of chronic obstructive pulmonary disease: Code(s): J44.1 - Chronic obstructive pulmonary disease with (acute) exacerbation Status: Acute (2) Tobacco dependence: Code(s): F17.200 - Nicotine dependence, unspecified, uncomplicated Status: Acute (3) Neuropathy: Code(s): G62.9 - Polyneuropathy, unspecified Status: Acute (4) Anxiety: Code(s): F41.9 - Anxiety disorder, unspecified Status: Acute (5) Hypertension: Code(s): I10 - Essential (primary) hypertension Status: Acute Plan The patient presented to the emergency department for evaluation of increasing shortness of breath and cough over the past 1 week as detailed in HPI. Labs, imaging, EKG, and all reports were personally reviewed. Clinically she has a COPD exacerbation and she has been started on scheduled bronchodilators and methylprednisolone. Given increasing shortness of breath and productive cough which is unusual for, she has been started on antibiotics as well. Smoking cessation is imperative and was discussed. Nicotine patch available per the patient's request. Blood pressures were reviewed and they are stable. Her home medications will be reviewed and resumed as appropriate. Findings and treatment plan were discussed with the patient. Questions were solicited and answered to satisfaction. The patient's medical management will be taken over by the hosp italist team in a.m. Quality VTE Prophylaxis VTE prophylaxis: pharmacologic ordered 12 systems were reviewed and are negative except for as per HPI. Hospitalist MIPS Advance Care Plan I have confirmed that the patient's Advanced Care Plan is present, code status is documented, or surrogate decision maker is listed in patient medical record.: Yes Medication Reconciliation The patient is not eligible for med reconciliation; the patient is in a emergent medical situation where delaying treatment would jeopardize the patients health.: Yes
[2024-12-23] MEDS: methylPREDNISolone SOD SUCC 125 MG VIAL 60 MG IV PUSH ×2 (18:12→23:51)
--- NOTE | 2024-12-23 19:43 | ADMGEN ---
This patient, Trini Chappell, was admitted to Medical Room 342-01. Patient/family oriented to hospital policies and general routines including ID bracelet, bed and alarms, visiting hours, pain management, procedures, bathroom and other care routines, personal items, smoking policy, room service/diet, and visiting hours. Information on how to activate the Rapid Response Team has been discussed. Patient/Family are encouraged to report perceived risks to care and to ask questions if they do not understand what they are told or what they should do.
[2024-12-23] MEDS: IPRATROPIUM 0.5 MG/ALBUTEROL SULFATE 2.5 MG AMPUL.NEB 3 ML INHALATION (19:53)
[2024-12-23] MEDS: HYDROcodone/acetaminophen (*CRX) 5-325 MG TABLET 1 TAB PO (20:45)
[2024-12-23] MEDS: GABAPENTIN 100 MG CAPSULE PO (20:45)
[2024-12-23] MEDS: risperiDONE 1 MG TABLET PO (20:45)
[2024-12-23] MEDS: ALPRAZolam (*CRX) 0.25 MG TABLET PO (20:45)
[2024-12-23] MEDS: guaiFENesin 12 HR 600 MG TABCR PO (20:45)
[2024-12-23] MEDS: NICOTINE (*PBKC) 14 MG PATCH 1 PATCH TRANSDERM (20:46)
[2024-12-23] MEDS: AZITHROMYCIN 250 MG TABLET 500 MG PO (20:47)
[2024-12-23 21:46] LABS: Influenza A QL RT-PCR Negative (Negative); Influenza B QL RT-PCR Negative (Negative); RSV RNA, RT-PCR Negative (Negative); SARS-CoV-2 RNA PCR Negative (Negative)
[2024-12-23 22:21] LABS: MRSA (PCR) NOT DETECTED (NOT DETECTE)
[2024-12-24] VITALS (7 sets, daily range): BP systolic 104–156; BP diastolic 50–76; PULSE 91–102; RESP 16–20; TEMP 36.4–36.8; O2SAT 91–93; BMI 17.2
[2024-12-24] MEDS: HYDROcodone/acetaminophen (*CRX) 5-325 MG TABLET 1 TAB PO ×3 (02:35→17:34)
[2024-12-24] MEDS: IPRATROPIUM 0.5 MG/ALBUTEROL SULFATE 2.5 MG AMPUL.NEB 3 ML INHALATION ×2 (03:00→20:51)
[2024-12-24] MEDS: methylPREDNISolone SOD SUCC 125 MG VIAL 60 MG IV PUSH ×3 (05:52→17:35)
[2024-12-24] MEDS: NICOTINE (*PBKC) 14 MG PATCH 1 PATCH TRANSDERM (08:40)
[2024-12-24] MEDS: ENOXAPARIN 40 MG/0.4 ML SYRINGE SUB-Q (08:41)
[2024-12-24] MEDS: guaiFENesin 12 HR 600 MG TABCR PO ×2 (08:41→21:11)
[2024-12-24] MEDS: amLODIPine BESYLATE 5 MG TABLET PO (08:41)
[2024-12-24] MEDS: ALPRAZolam (*CRX) 0.25 MG TABLET PO ×2 (08:41→21:11)
[2024-12-24] MEDS: GABAPENTIN 100 MG CAPSULE PO ×2 (08:41→21:11)
[2024-12-24] MEDS: levoFLOXacin 500 MG TABLET PO (08:42)
--- NOTE | 2024-12-24 10:35 | PCRCNOTE ---
Window of time for administration has passed. See next scheduled administration.
[2024-12-24] MEDS: ACETAMINOPHEN 325 MG TABLET 650 MG PO (12:12)
--- NOTE | 2024-12-24 13:07 | PC.NURSE ---
Pt requesting to be made a DNR. Pt education provided and understands what changing to DNR means. Secondary nurse to co-sign change.
--- NOTE | 2024-12-24 15:25 | P.PNIM_ITS ---
Progress Note: A&P Assessment and Plan (1) Acute exacerbation of chronic obstructive pulmonary disease: Code(s): J44.1 - Chronic obstructive pulmonary disease with (acute) exacerbation Status: Acute Assessment and Plan: Patient presents with SOB and cough. CXR showing posterior basilar infiltrates. She remains on room air. [place] she has COPD exacerbation with either acute bronchitis or PNA. Can not exclude PE given her pleuritic pain. Continue Solu-medrol and bronchodilators. Check sputum. Change to Levaquin. Check CTA chest. Change to oral Prednisone tomorrow for possible discharge. CTA negative for PNA and PE. (2) Tobacco dependence: Code(s): F17.200 - Nicotine dependence, unspecified, uncomplicated Status: Acute Assessment and Plan: Patient was educated about the benefits of smoking cessation. (3) Neuropathy: Code(s): G62.9 - Polyneuropathy, unspecified Status: Acute Assessment and Plan: Stable. Continue gabapentin. (4) Anxiety: Code(s): F41.9 - Anxiety disorder, unspecified Status: Acute Assessment and Plan: Mood is stable. Continue her risperidone and alprazolam. (5) Hypertension: Code(s): I10 - Essential (primary) hypertension Status: Acute Assessment and Plan: Patient's blood pressure was reviewed Blood pressure remains well controlled. Will continue to monitor Plan DVT prophyalxis - Lovenox Code status - DNR Subjective Date/time seen: 12/24/24 15:25 Interval history: 59yo female with COPD, ongoing tobacco use, HTN, neuropathy and anxiety here for cough and SOB. SOB unchanged. No CP. [place] feverish at home. Cough productive of yellow sputum. No leg edema. Does complain of calf pain bilaterally but feel related to her neuropathy. Patient with left upper back pleuritic pain that is not positional Exam Narrative: AF 98.0 117/60 95 16 93% ra Gen - thin female in NARD Chest - expiratory rhonchi with end expir wheeze diffusely CV - RRR S1/S2 Abd - soft, NT, ND Ext - no pedal edema. No cords. +Homans Neuro - nonfocal Psych - pleasant and cooperative Skin - warm and dry Objective Data Vital Signs Vital Signs: Vital Signs - 24 hr 12/23/24 16:51 12/23/24 17:16 12/23/24 17:31 Temperature Pulse Rate 97 98 96 Respiratory Rate 20 27 H 30 H Blood Pressure 113/70 134/82 129/69 Pulse Oximetry 93 95 94 Oxygen Delivery 12/23/24 17:45 12/23/24 18:15 12/23/24 19:53 Temperature Pulse Rate 100 95 Respiratory Rate 20 20 Blood Pressure 130/74 Pulse Oximetry 94 94 Oxygen Delivery Room Air 12/23/24 19:55 12/23/24 19:59 12/23/24 20:00 Temperature Pulse Rate 91 Respiratory Rate 20 Blood Pressure Pulse Oximetry 96 Oxygen Delivery Room Air Room Air 12/23/24 22:06 12/24/24 03:00 12/24/24 03:09 Temperature 97.3 F L Pulse Rate 64 91 99 Respiratory Rate 16 20 20 Blood Pressure 157/74 H Pulse Oximetry 94 Oxygen Delivery 12/24/24 06:00 Temperature 98 F Pulse Rate 95 Respiratory Rate 16 Blood Pressure 117/60 Pulse Oximetry 93 Oxygen Delivery Intake/Output Intake/Output: Intake & Output 12/21/24 12/22/24 12/23/24 12/24/24 23:59 23:59 23:59 23:59 Intake Total 1027 Output Total 300 Balance 727 Meds/Results Medications: Active Medications Generic Name Dose Route Start Last Admin Trade Name Freq PRN Reason Stop Dose Admin Acetaminophen 650 mg 12/23/24 16:55 12/24/24 12:12 Acetaminophen 325 Mg Tablet PO 650 mg Q4H PRN Administration Mild Pain (1-3) or Fever Hydrocodone Bitart/Acetaminophen 1 tab 12/23/24 20:20 12/24/24 08:43 Hydrocodone/Acetaminophen (*Crx) 5-325 Mg Tablet PO 1 tab Q6H PRN Administration Pain Rated 4-6 Albuterol/Ipratropium 3 ml 12/23/24 20:00 12/24/24 10:34 Ipratropium 0.5 Mg/Albuterol Sulfate 2.5 Mg Ampul.Neb 3 Ml INHALATION Not Given Q6HRT SHIVANI Alprazolam 0.25 mg 12/23/24 21:00 12/24/24 08:41 Alprazolam (*Crx) 0.25 Mg Tablet PO 0.25 mg Q12HR SHIVANI Administration Amlodipine Besylate 5 mg 12/24/24 09:00 12/24/24 08:41 Amlodipine Besylate 5 Mg Tablet PO 5 mg DAILY SHIVANI Administration Enoxaparin Sodium 40 mg 12/24/24 09:00 12/24/24 08:41 Enoxaparin 40 Mg/0.4 Ml Syringe SUB-Q 40 mg DAILY SHIVANI Administration Gabapentin 100 mg 12/23/24 21:00 12/24/24 08:41 Gabapentin 100 Mg Capsule PO 100 mg Q12HR SHIVANI Administration Guaifenesin 600 mg 12/23/24 21:00 12/24/24 08:41 Guaifenesin 12 Hr 600 Mg Tabcr PO 600 mg Q12HR SHIVANI Administration Levofloxacin 500 mg 12/24/24 09:00 12/24/24 08:42 Levofloxacin 500 Mg Tablet PO 12/28/24 09:01 500 mg DAILY SHIVANI Administration Methylprednisolone Sodium Succinate 60 mg 12/23/24 18:00 12/24/24 11:59 Methylprednisolone Sod Succ 125 Mg Vial IV PUSH 60 mg Q6HR SHIVANI Administration Nicotine 1 patch 12/23/24 20:25 12/24/24 08:40 Nicotine (*Yuliya) 14 Mg Patch TRANSDERM 1 patch DAILY SHIVANI Administration Risperidone 1 mg 12/23/24 21:00 12/23/24 20:45 Risperidone 1 Mg Tablet PO 1 mg HS SHIVANI Administration Fluticasone/Salmeterol 2 puff 12/24/24 08:00 12/24/24 10:34 Fluticasone/Salmeterol 115-21 Mcg Inhaler 1 Puff INHALATION Not Given Q12HRT [facility] Radiology Results: ITS Impressions Chest X-Ray 12/23/24 12:30 IMPRESSION: 1: Posterior basilar infiltrates, best seen on lateral view, atelectasis versus pneumonia. Labs Labs: Laboratory Results - last 24 hr 12/23/24 21:00 Nasal MRSA (PCR) Not detected Influenza A (RT-PCR) Negative Influenza B (RT-PCR) Negative RSV (RT-PCR) Negative SARS-CoV-2 RNA (RT-PCR) Negative
--- NOTE | 2024-12-24 18:47 | PCRCNOTE ---
Window of time for administration has passed. See next scheduled administration.
[2024-12-24] MEDS: FLUTICASONE/SALMETEROL 115-21 MCG INHALER 1 PUFF 2 PUFF INHALATION (20:53)
[2024-12-24] MEDS: risperiDONE 1 MG TABLET PO (21:11)
[2024-12-25] VITALS (8 sets, daily range): BP systolic 125; BP diastolic 64; PULSE 85–100; RESP 16–20; TEMP 36.4; O2SAT 94–95
[2024-12-25] MEDS: methylPREDNISolone SOD SUCC 125 MG VIAL 60 MG IV PUSH
[2024-12-25] MEDS: IPRATROPIUM 0.5 MG/ALBUTEROL SULFATE 2.5 MG AMPUL.NEB 3 ML INHALATION ×3 (01:43→13:36)
[2024-12-25] MEDS: HYDROcodone/acetaminophen (*CRX) 5-325 MG TABLET 1 TAB PO ×3 (06:25→12:22)
[2024-12-25] MEDS: amLODIPine BESYLATE 5 MG TABLET PO (09:13)
[2024-12-25] MEDS: ALPRAZolam (*CRX) 0.25 MG TABLET PO (09:13)
[2024-12-25] MEDS: NICOTINE (*PBKC) 14 MG PATCH 1 PATCH TRANSDERM (09:13)
[2024-12-25] MEDS: predniSONE 20 MG TABLET 40 MG PO (09:13)
[2024-12-25] MEDS: levoFLOXacin 500 MG TABLET PO (09:13)
[2024-12-25] MEDS: guaiFENesin 12 HR 600 MG TABCR PO (09:13)
[2024-12-25] MEDS: GABAPENTIN 100 MG CAPSULE PO (09:13)
--- NOTE | 2024-12-25 09:55 | P.PNIM_ITS ---
Progress Note: A&P Assessment and Plan (1) Anxiety: Code(s): F41.9 - Anxiety disorder, unspecified Status: Acute (2) Hypertension: Code(s): I10 - Essential (primary) hypertension Status: Acute (3) Neuropathy: Code(s): G62.9 - Polyneuropathy, unspecified Status: Acute (4) Acute exacerbation of chronic obstructive pulmonary disease: Code(s): J44.1 - Chronic obstructive pulmonary disease with (acute) exacerbation Status: Acute (5) Tobacco dependence: Code(s): F17.200 - Nicotine dependence, unspecified, uncomplicated Status: Acute Plan (1) Acute exacerbation of chronic obstructive pulmonary disease: Code(s): J44.1 - Chronic obstructive pulmonary disease with (acute) exacerbation Status: Acute Assessment and Plan: Patient presents with SOB and cough. CXR showing posterior basilar infiltrates. COPD exacerbation with either acute bronchitis or PNA. on Solu-medrol and bronchodilators. Check sputum. Change to Levaquin. Check CTA chest CT shows no PE or pneumonia, bilateral atelectasis Exacerbation resolved, changed to tapering dose prednisone p.o. Tobacco dependence: Code(s): F17.200 - Nicotine dependence, unspecified, uncomplicated Status: Acute Assessment and Plan: Patient was educated about the benefits of smoking cessation. Neuropathy: Code(s): G62.9 - Polyneuropathy, unspecified Status: Acute Assessment and Plan: Stable. Continue gabapentin. Anxiety: Code(s): F41.9 - Anxiety disorder, unspecified Status: Acute Assessment and Plan: Mood is stable. Continue her risperidone and alprazolam. (5) Hypertension: Code(s): I10 - Essential (primary) hypertension Status: Acute Assessment and Plan: Patient's blood pressure was reviewed Blood pressure remains well controlled. Discharge patient home today Subjective Date/time seen: 12/25/24 09:55 Interval history: Patient feels comfortable, pulse ox 100% on room air. Patient has a mild cough without phlegm. Denies chest pain abdomen pain nausea vomiting diarrhea dysuria. Patient is afebrile blood pressure stable Exam Narrative: GENERAL: Pleasant, in no acute distress. Well-nourished. - EYES: EOMI. Anicteric. - HENT: Moist mucous membranes. - LUNGS: Clear to auscultation bilateral ly, no wheezing, rhonchi, or rales. - CARDIOVASCULAR: Regular rate and rhyth m. No murmur. No JVD. - ABDOMEN: Soft, non-tender and non-dist ended. No palpable masses. - EXTREMITIES: No edema. Peripheral puls es 2+. Non-tender. - NEUROLOGIC: No focal neurological defi cits. CN II-XII grossly intact. - PSYCHIATRIC: Awake, Alert and oriented x 3. Appropriate mood and affect. - SKIN: No rashes or lesions. Warm. - LYMPH: No cervical lymphadenopathy. Objective Data Vital Signs Vital Signs: Vital Signs - 24 hr 12/24/24 14:00 12/24/24 20:00 12/24/24 20:51 Temperature 97.6 F Pulse Rate 102 H Respiratory Rate 19 Blood Pressure 104/50 L Pulse Oximetry 92 91 Oxygen Delivery Room Air Room Air Fraction of Inspired Oxygen 21 12/24/24 20:51 12/24/24 21:02 12/24/24 22:01 Temperature 98.3 F Pulse Rate 92 96 101 H Respiratory Rate 20 20 16 Blood Pressure 156/76 H Pulse Oximetry 93 Oxygen Delivery Fraction of Inspired Oxygen 12/25/24 01:43 12/25/24 01:54 12/25/24 06:00 Temperature 97.5 F L Pulse Rate 100 94 99 Respiratory Rate 20 20 16 Blood Pressure 125/64 Pulse Oximetry 95 Oxygen Delivery Fraction of Inspired Oxygen 12/25/24 08:00 Temperature Pulse Rate Respiratory Rate Blood Pressure Pulse Oximetry Oxygen Delivery Room Air Fraction of Inspired Oxygen Intake/Output Intake/Output: Intake & Output 12/22/24 12/23/24 12/24/24 12/25/24 23:59 23:59 23:59 23:59 Intake Total 1814 1040 Output Total 900 1500 Balance 914 -460 Meds/Results Medications: Active Medications Generic Name Dose Route Start Last Admin Trade Name Freq PRN Reason Stop Dose Admin Acetaminophen 650 mg 12/23/24 16:55 12/24/24 12:12 Acetaminophen 325 Mg Tablet PO 650 mg Q4H PRN Administration Mild Pain (1-3) or Fever Hydrocodone Bitart/Acetaminophen 1 tab 12/23/24 20:20 12/25/24 06:25 Hydrocodone/Acetaminophen (*Crx) 5-325 Mg Tablet PO 1 tab Q6H PRN Administration Pain Rated 4-6 Albuterol/Ipratropium 3 ml 12/23/24 20:00 12/25/24 01:43 Ipratropium 0.5 Mg/Albuterol Sulfate 2.5 Mg Ampul.Neb 3 Ml INHALATION 3 ml Q6HRT SHIVANI Administration Alprazolam 0.25 mg 12/23/24 21:00 12/25/24 09:13 Alprazolam (*Crx) 0.25 Mg Tablet PO 0.25 mg Q12HR SHIVANI Administration Amlodipine Besylate 5 mg 12/24/24 09:00 12/25/24 09:13 Amlodipine Besylate 5 Mg Tablet PO 5 mg DAILY SHIVANI Administration Enoxaparin Sodium 40 mg 12/24/24 09:00 12/24/24 08:41 Enoxaparin 40 Mg/0.4 Ml Syringe SUB-Q 40 mg DAILY SHIVANI Administration Gabapentin 100 mg 12/23/24 21:00 12/25/24 09:13 Gabapentin 100 Mg Capsule PO 100 mg Q12HR SHIVANI Administration Guaifenesin 600 mg 12/23/24 21:00 12/25/24 09:13 Guaifenesin 12 Hr 600 Mg Tabcr PO 600 mg Q12HR SHIVANI Administration Levofloxacin 500 mg 12/24/24 09:00 12/25/24 09:13 Levofloxacin 500 Mg Tablet PO 12/28/24 09:01 500 mg DAILY SHIVANI Administration Nicotine 1 patch 12/23/24 20:25 12/25/24 09:13 Nicotine (*Pbkc) 14 Mg Patch TRANSDERM 1 patch DAILY SHIVANI Administration Prednisone 40 mg 12/25/24 08:00 12/25/24 09:13 Prednisone 20 Mg Tablet PO 12/28/24 08:01 40 mg DAILY@0800 SHIVANI Administration Risperidone 1 mg 12/23/24 21:00 12/24/24 21:11 Risperidone 1 Mg Tablet PO 1 mg HS SHIVANI Administration Fluticasone/Salmeterol 2 puff 12/24/24 08:00 12/24/24 20:53 Fluticasone/Salmeterol 115-21 Mcg Inhaler 1 Puff INHALATION 2 puff Q12HRT SHIVANI Administration Radiology Results: ITS Impressions Chest X-Ray 12/23/24 12:30 IMPRESSION: 1: Posterior basilar infiltrates, best seen on lateral view, atelectasis versus pneumonia. Chest CTA 12/24/24 16:54 IMPRESSION: No pulmonary embolus. No thoracic aortic dissection. Bibasilar atelectasis, consistent with recent chest radiograph
--- NOTE | 2024-12-25 10:18 | P.DS_ITS ---
DS: Admitting Diagnosis Discharge Date 12/25/24 Admitting Diagnosis (1) Anxiety: Code(s): F41.9 - Anxiety disorder, unspecified Status: Acute (2) Hypertension: Code(s): I10 - Essential (primary) hypertension Status: Acute (3) Neuropathy: Code(s): G62.9 - Polyneuropathy, unspecified Status: Acute (4) Acute exacerbation of chronic obstructive pulmonary disease: Code(s): J44.1 - Chronic obstructive pulmonary disease with (acute) exacerbation Status: Acute (5) Tobacco dependence: Code(s): F17.200 - Nicotine dependence, unspecified, uncomplicated Status: Acute DS: Discharge Diagnosis Discharge Diagnosis (1) Anxiety: Code(s): F41.9 - Anxiety disorder, unspecified Status: Acute (2) Hypertension: Code(s): I10 - Essential (primary) hypertension Status: Acute (3) Neuropathy: Code(s): G62.9 - Polyneuropathy, unspecified Status: Acute (4) Acute exacerbation of chronic obstructive pulmonary disease: Code(s): J44.1 - Chronic obstructive pulmonary disease with (acute) exacerbation Status: Acute (5) Tobacco dependence: Code(s): F17.200 - Nicotine dependence, unspecified, uncomplicated Status: Acute DS: Summary Hospital Course Hospital Course: This is a pleasant 59-year-old female smoker with chronic obstructive pulmonary disease, hypertension, neuropathy, and anxiety who presented to the emergency department via EMS from home for evaluation of cough and shortness of breath. At baseline she does not get around very well and is limited by her breathing. When she is out of the home (she lives at [place] 3 days a week but then stays with her ex- the remainder of the week) she will use as scooter. She can only go up a few steps without getting short of breath. She does have a chronic cough which is typically not productive. Over the course of the last week or so she has developed increasing cough which has been productive clear sputum, progressive dyspnea on lesser and lesser exertion, and feelings as though she is unable to get in a good deep breath. She has been using her inhalers at home which have not provided her with much benefit. She does not have nebulizers prescribed to her. She denies fever, headache, sore throat, hemoptysis, pleuritic pain, vomiting, diarrhea, lower extremity edema, and calf pain. In the ED: SpO2 was 93% on room air on arrival and her vital signs have been stable. CMP and CBC were pretty unremarkable. Chest x-ray showed posterior basal infiltrates atelectasis versus pneumonia. She was given a continuous nebulizer treatment and methylprednisolone and she is being admitted in this setting for further treatment of COPD exacerbation. The following med issues have been addressed during hospitalization Acute exacerbation of chronic obstructive pulmonary disease: Code(s): J44.1 - Chronic obstructive pulmonary disease with (acute) exacerbation Status: Acute Assessment and Plan: Patient presents with SOB and cough. CXR showing posterior basilar infiltrates. COPD exacerbation with either acute bronchitis or PNA. on Solu-medrol and bronchodilators. Check sputum. Change to Levaquin. Check CTA chest CT shows no PE or pneumonia, bilateral atelectasis Exacerbation resolved, changed to tapering dose prednisone p.o. Tobacco dependence: Code(s): F17.200 - Nicotine dependence, unspecified, uncomplicated Status: Acute Assessment and Plan: Patient was educated about the benefits of smoking cessation. Neuropathy: Code(s): G62.9 - Polyneuropathy, unspecified Status: Acute Assessment and Plan: Stable. Continue gabapentin. Anxiety: Code(s): F41.9 - Anxiety disorder, unspecified Status: Acute Assessment and Plan: Mood is stable. Continue her risperidone and alprazolam. Hypertension: Code(s): I10 - Essential (primary) hypertension Status: Acute Assessment and Plan: Patient's blood pressure was reviewed Blood pressure remains well controlled. Discharge patient home today Time Spent with Patient Time attestation: Total time spent providing and/or coordinating discharge services: Exam Narrative: GENERAL: Pleasant, in no acute distress. Well-nourished. - EYES: EOMI. Anicteric. - HENT: Moist mucous membranes. - LUNGS: Clear to auscultation bilateral ly, no wheezing, rhonchi, or rales. - CARDIOVASCULAR: Regular rate and rhyth m. No murmur. No JVD. - ABDOMEN: Soft, non-tender and non-dist ended. No palpable masses. - EXTREMITIES: No edema. Peripheral puls es 2+. Non-tender. - NEUROLOGIC: No focal neurological defi cits. CN II-XII grossly intact. - PSYCHIATRIC: Awake, Alert and oriented x 3. Appropriate mood and affect. - SKIN: No rashes or lesions. Warm. - LYMPH: No cervical lymphadenopathy. Discharge Plan Discharge Attending physician on discharge: Terry Grier Discharging Clinician: Terry Grier Anticipated Discharge Date/Time: 12/25/24 10:20 Patient Disposition: Home, Self-Care Activity: as tolerated Diet: as tolerated and regular Patient Instructions: Antibiotic Form Patient Language: Chinese Stand Alone Forms: General Discharge Information Follow-up/Referrals: Charmaine,Mariia Stokes MD [Primary Care Provider] - ( patient needs to see primary care doctor in 1 week) Discharge Medications: New prednisone 5 mg tablet See Taper PO DAILY 91 Days Qty: 340 0RF Taper: Prednisone Taper from 40 mg;13 weeks 40 mg DAILY for 7 Days and 0 Hour 35 mg DAILY for 7 Days and 0 Hour 30 mg DAILY for 7 Days and 0 Hour 25 mg DAILY for 7 Days and 0 Hour 22.5 mg DAILY for 7 Days and 0 Hour 20 mg DAILY for 7 Days and 0 Hour 17.5 mg DAILY for 7 Days and 0 Hour 15 mg DAILY for 7 Days and 0 Hour 12.5 mg DAILY for 7 Days and 0 Hour 10 mg DAILY for 7 Days and 0 Hour 7.5 mg DAILY for 7 Days and 0 Hour 5 mg DAILY for 7 Days and 0 Hour 2.5 mg DAILY for 7 Days and 0 Hour prednisone 10 mg Tablet 10 mg PO DIRECTED Qty: 20 0RF Rx Instructions: see taper instructions 40 mg daily p.o. x2 30 mg daily p.o. x2 20 mg daily p.o. x2 10 mg daily p.o. x2 nicotine 14 mg/24 hr Patch 24 Hour 1 patch transdermal DAILY Qty: 20 0RF levofloxacin 500 mg Tablet 500 mg PO DAILY Qty: 4 0RF Continued nicotine 14 mg/24 hr patch 24 hour 1 patch transdermal DAILY amlodipine 5 mg tablet 5 mg PO DAILY alprazolam 0.25 mg tablet 0.25 mg PO .q12hr gabapentin 100 mg capsule 100 mg PO Q12H risperidone 1 mg tablet 1 mg PO HS albuterol sulfate 90 mcg/actuation HFA aerosol inhaler 2 puff INHALATION PRN PRN (Reason: shortness of breath or wheezing) Qty: 1 3RF budesonide-formoterol [Symbicort] 160-4.5 mcg/actuation HFA aerosol inhaler 2 puff INHALATION BID Qty: 10.2 2RF Discontinued fluticasone propion-salmeterol 250-50 mcg/dose blister with device 1 inh INHALATION BID Date of admission: 12/23/24 16:55 Primary Care Provider: Charmaine,Mariia Stokes Admitting Provider: Deon Nye Attending physician on admission: Deon Nye Condition: Stable
[2024-12-25] MEDS: FLUTICASONE/SALMETEROL 115-21 MCG INHALER 1 PUFF 2 PUFF INHALATION (10:35)
== END 2024-12-25 15:30 | disposition home or self-care (01) ==
LOC: ANHED 13:54 → ANH3MED 12-24 12:57 → ANHIMU 12-26 07:12
PROVIDERS: Physician Assistant; Registered Nurse; Admitting Provider Internal Medicine; Emergency Provider Emergency Medicine; PCP Family Medicine; Visit Provider Hospitalist
DX: J44.1 Chronic obstructive pulmonary disease with (acute) exacerbation (principal); F17.210 Nicotine dependence, cigarettes, uncomplicated; I10 Essential (primary) hypertension; G62.9 Polyneuropathy, unspecified; F41.9 Anxiety disorder, unspecified; M19.90 Unspecified osteoarthritis, unspecified site; Z66 Do not resuscitate; Z20.822 Contact with and (suspected) exposure to COVID-19; Z79.51 Long term (current) use of inhaled steroids; Z79.899 Other long term (current) drug therapy; Z88.8 Allergy status to other drugs, medicaments and biological substances
CPT/HCPCS: 36415; 71046; 71275; 80053; 84484; 85025; 85610; 85730; 87070; 87205; 87637; 87641; 93005; 94640; 94667; 96372; 96374; 96375; 96376; 99285; A9270; G0378; G0379; J1650; J2919; J7512; Q9967